=== PATIENT | female | born 1975 | race Caucasian/White ===

== ENCOUNTER 2017-05-20 16:24 | Emergency (ER) | payer SELFPAY ==
[~2017-05-20] VITALS: Ht 152.4 cm; Wt 59.0 kg
[2017-05-20] MEDS ORDERED: Motrin,Rufen800 MG PO (17:43)
[2017-05-20] MEDS ORDERED: CYCLOBENZAPRINE5 M3 PO (17:43)
== END 2017-05-20 17:48 | disposition home or self-care (01) ==
LOC: ED 16:24
DX: S39.012A Strain of muscle, fascia and tendon of lower back, initial encounter (principal); X58.XXXA Exposure to other specified factors, initial encounter; Y93.89 Activity, other specified; Y92.89 Other specified places as the place of occurrence of the external cause; Y99.8 Other external cause status